=== PATIENT | male | born 1950 | race Caucasian/White ===

== ENCOUNTER 2017-11-22 20:56 | Emergency (ER) | payer OTHER ==
[~2017-11-22] VITALS: Ht 175.3 cm; Wt 86.6 kg
[2017-11-22] MEDS ORDERED: NORCO 10-325 T1 EACH PO (21:09)
[2017-11-22] MEDS ORDERED: LISINOPRIL10 MG PO (21:10)
[2017-11-22] MEDS ORDERED: ATORVASTATIN CA20 MG PO (21:10)
[2017-11-22 21:55] VITALS: BP 166/80
[2017-11-23] MEDS ORDERED: SERTRALINE HCL50 MG PO (22:37)
[2017-11-23] MEDS ORDERED: WELLBUTRIN XL300 MG PO (22:38)
[2017-11-23] MEDS ORDERED: PERCOCET 5-3251 EACH PO (22:45)
== END 2017-11-22 21:55 | disposition home or self-care (01) ==
LOC: M.ERS 20:56
DX: G89.29 Other chronic pain (principal); M54.6 Pain in thoracic spine; M54.2 Cervicalgia

== ENCOUNTER 2017-11-23 22:26 | Emergency (ER) | payer OTHER ==
[~2017-11-23] VITALS: Ht 175.3 cm; Wt 86.6 kg
[~2017-11-23 22:26] MED LIST: ATORVASTATIN CA20 MG PO; LISINOPRIL10 MG PO; NORCO 10-325 T1 EACH PO
[2017-11-23] MEDS ORDERED: SERTRALINE HCL50 MG PO (22:37)
[2017-11-23] MEDS ORDERED: WELLBUTRIN XL300 MG PO (22:38)
[2017-11-23] MEDS ORDERED: PERCOCET 5-3251 EACH PO (22:45)
[2017-11-23 22:57] VITALS: BP 172/105
== END 2017-11-23 23:01 | disposition home or self-care (01) ==
LOC: M.ERS 22:26
DX: G89.29 Other chronic pain (principal); M54.9 Dorsalgia, unspecified; I25.2 Old myocardial infarction